=== PATIENT | female | born 1995 | race Two or more races ===

== ENCOUNTER 2021-12-24 08:29 | Outpatient (CLI) | payer OTHER, SELFPAY ==
[2021-12-24 16:29] LABS: Cholesterol* 128 mg/dL (90-199); Glucose* 97 mg/dL (60-115); Triglycerides* 183 mg/dL (40-149)
[2021-12-24 16:30] LABS: HDL Cholesterol* 33 mg/dL (>=50); LDL Cholesterol Calculated 58 mg/dL (<100)
[2021-12-24 17:01] LABS: TSH With Reflex to FT4* 0.455 uIU/mL (0.270-4.200)
== END 2021-12-24 08:30 | disposition home or self-care (01) ==
PROVIDERS: PCP Family Medicine; Visit Provider Nurse Practitioner Family
DX: Z00.00 Encounter for general adult medical examination without abnormal findings; E03.1 Congenital hypothyroidism without goiter; F32.A Depression, unspecified; Z13.1 Encounter for screening for diabetes mellitus; Z13.6 Encounter for screening for cardiovascular disorders
CPT/HCPCS: 36415; 80061; 82947; 84443; 88174

== ENCOUNTER 2022-08-12 08:41 | Outpatient (CLI) | payer OTHER, SELFPAY | END 2022-08-12 08:42 | disposition home or self-care (01) | LOC: NFLDREF 08:42 | PROVIDERS: PCP Family Medicine; Visit Provider Family Medicine | DX: E03.1 Congenital hypothyroidism without goiter (principal) | CPT/HCPCS: 84443 ==

== ENCOUNTER 2023-08-10 13:45 | Outpatient (CLI) | payer OTHER, SELFPAY | END 2023-08-10 13:46 | disposition home or self-care (01) | LOC: NFLDREF 08-17 15:00 | PROVIDERS: PCP Family Medicine; Referring Provider Family Medicine; Visit Provider Family Medicine | DX: E03.1 Congenital hypothyroidism without goiter (principal) | CPT/HCPCS: 84439; 84443 ==

== ENCOUNTER 2024-09-10 08:58 | Outpatient (CLI) | payer BC, SELFPAY | END 2024-09-10 08:59 | disposition home or self-care (01) | LOC: NFLDREF 09-11 01:46 | PROVIDERS: PCP Family Medicine; Referring Provider Family Medicine; Visit Provider Family Medicine | DX: E03.1 Congenital hypothyroidism without goiter (principal); E78.5 Hyperlipidemia, unspecified; Z13.1 Encounter for screening for diabetes mellitus | CPT/HCPCS: 80061; 82947; 84439; 84443 ==

== ENCOUNTER 2024-09-25 15:12 | Outpatient (CLI) | payer BC, SELFPAY ==
[2024-09-28 05:35] LABS: HPV Source Cervical; HPV, High Risk by TMA Detected
[2024-09-29 10:30] LABS: HPV Genotype 16 by TMA Not Detected; HPV Genotype 18/45 by TMA Not Detected; HPVG Source Cervical
[2024-10-09 15:28] LABS: Pap Test Reviewed by Path Done
== END 2024-09-25 15:13 | disposition home or self-care (01) ==
PROVIDERS: PCP Family Medicine; Visit Provider Family Medicine
DX: Z12.4 Encounter for screening for malignant neoplasm of cervix (principal); Z11.51 Encounter for screening for human papillomavirus (HPV)
CPT/HCPCS: 87624; 87625; 88141; 88142

== ENCOUNTER 2025-01-24 09:30 | Outpatient (CLI) | payer BC, SELFPAY | END 2025-01-24 09:31 | disposition home or self-care (01) | LOC: NFLDREF 01-29 14:36 | PROVIDERS: PCP Family Medicine; Referring Provider Family Medicine; Visit Provider Family Medicine | DX: E03.1 Congenital hypothyroidism without goiter (principal) | CPT/HCPCS: 84439; 84443 ==

== ENCOUNTER 2025-03-24 16:32 | Outpatient (CLI) | payer BC, SELFPAY | END 2025-03-24 16:33 | disposition home or self-care (01) | LOC: NFLDREF 16:34 | PROVIDERS: PCP Family Medicine; Visit Provider Family Medicine | DX: E03.1 Congenital hypothyroidism without goiter (principal) | CPT/HCPCS: 84443 ==